=== PATIENT | female | born 1970 | race Two or more races ===

== ENCOUNTER 2021-06-16 12:47 | Emergency (ER) | payer SELFPAY ==
[~2021-06-16] VITALS: Ht 160 cm; Wt 95.3 kg
[2021-06-16 13:35] VITALS: BP 163/86
[2021-06-16] MEDS ORDERED: IBUP800T27 PO (13:52)
[2021-06-16] MEDS ORDERED: AMOX-277 PO (13:52)
== END 2021-06-16 14:01 | disposition home or self-care (01) ==
LOC: ER 12:47
DX: H66.91 Otitis media, unspecified, right ear (principal); J03.90 Acute tonsillitis, unspecified; E11.9 Type 2 diabetes mellitus without complications; I10 Essential (primary) hypertension

== ENCOUNTER 2024-01-23 18:28 | Emergency (ER) | payer MEDICAID ==
[~2024-01-23] VITALS: Ht 165.1 cm; Wt 82.4 kg
[~2024-01-23 18:28] MED LIST: AMOX875T4 PO; IBUP-1456 PO
[2024-01-23 22:34] VITALS: BP 164/85; TEMP 97.9
[2024-01-23 22:38] VITALS: PULSE 70; RESP 16; O2SAT 99
[2024-01-23] MEDS: KETOROLAC TROMETH 60MG/2ML VIAL IM ONE (22:56)
== END 2024-01-24 01:26 | disposition home or self-care (01) ==
LOC: ER 18:28
DX: S16.1XXA Strain of muscle, fascia and tendon at neck level, initial encounter (principal); E11.9 Type 2 diabetes mellitus without complications; I10 Essential (primary) hypertension; X58.XXXA Exposure to other specified factors, initial encounter; Y93.89 Activity, other specified; Y92.89 Other specified places as the place of occurrence of the external cause; Y99.8 Other external cause status
CPT/HCPCS: 72040; 96372; 99283; J1885

== ENCOUNTER 2024-02-06 13:43 | Emergency (ER) | payer MEDICAID ==
[~2024-02-06] VITALS: Ht 165.1 cm; Wt 81.7 kg
[2024-02-06 15:59] LABS: Alanine Aminotransferase 24 U/L (7-40); Albumin 4.4 g/dL (3.2-4.8); Alkaline Phosphatase 116 U/L (46-116); Anion Gap 8 (5-15); Aspartate Aminotransferase 11 U/L (13-40); BUN/Creatinine Ratio 12.8 (10.0-20.0); Blood Urea Nitrogen 11 mg/dL (9-23); Calcium 9.9 mg/dL (8.7-10.4); Carbon Dioxide 26 mmol/L (20-30); Chloride 106 mmol/L (98-107); Glucose 224 mg/dL (74-106); Potassium 3.4 mmol/L (3.5-5.1); Sodium 140 mmol/L (136-145)
[2024-02-06 16:00] LABS: Bilirubin, Total 0.7 mg/dL (0.2-1.0); Total Protein 7.7 g/dL (5.7-8.2)
[2024-02-06 16:18] LABS: Urine Bacteria None Seen /hpf (None Seen)
[2024-02-06 16:30] LABS: Urine Blood 1+ /uL (Negative); Urine Clarity Turbid (Clear); Urine Color Yellow (Yellow); Urine Hyaline Cast FEW /lpf (0 - 2); Urine Mucus FEW (None Seen); Urine Protein, UAD 1+ (Negative); Urine Specific Gravity 1.024 (1.001-1.035); Urine Urobilinogen Normal (Negative); Urine WBC 3 /hpf (0 - 5); Urine pH 5.5 (5.0-9.0)
[2024-02-06 18:52] VITALS: BP 143/88; PULSE 75; RESP 20; TEMP 97.3; O2SAT 100
== END 2024-02-06 18:57 | disposition home or self-care (01) ==
LOC: ER 13:43
DX: R10.9 Unspecified abdominal pain (principal); E11.9 Type 2 diabetes mellitus without complications; E78.5 Hyperlipidemia, unspecified; I10 Essential (primary) hypertension
CPT/HCPCS: 36415; 74176; 80053; 81001